=== PATIENT | female | born 1980 | race Caucasian/White ===

== ENCOUNTER 2016-12-14 16:45 | Outpatient (CLI) | payer OTHER | END 2016-12-14 16:46 | disposition home or self-care (01) | LOC: HPCALD 16:45 | PROVIDERS: ATTEND Family Medicine | DX: Z01.419 Encounter for gynecological examination (general) (routine) without abnormal findings (principal) | CPT/HCPCS: 88142; G0123 ==

== ENCOUNTER 2022-06-13 14:06 | Outpatient (CLI) | payer BC | END 2022-06-13 14:07 | disposition home or self-care (01) | LOC: BURRAD 14:06 | PROVIDERS: ATTEND Physician Assistant | DX: S92.354G Nondisplaced fracture of fifth metatarsal bone, right foot, subsequent encounter for fracture with delayed healing (principal) ==